=== PATIENT | female | born 1975 | race Caucasian/White ===

== ENCOUNTER → 2020-09-10 | Outpatient (CLI) | payer OTHER ==
[~2020-09-10] MED LIST: BUPR-173 PO; BUPR150T73 PO
== END | disposition home or self-care (01) ==
LOC: RAD 16:55
PROVIDERS: ATTEND Orthopaedic Surgery Orthopaedic Surgery of the Spine
DX: M43.06 Spondylolysis, lumbar region (principal); M54.16 Radiculopathy, lumbar region
CPT/HCPCS: 71046; 72148